=== PATIENT | female | born 1950 | race Caucasian/White ===

== ENCOUNTER 2017-03-02 11:17 | Emergency (ER) | payer OTHER ==
[2017-03-02 11:29] VITALS: BP 150/80; PULSE 69; RESP 16; TEMP 97.7; O2SAT 94
--- NOTE | 2017-03-02 11:59 | EDPHY ---
H & P Time Seen by Provider: 03/02/17 11:28 HPI/ROS: CHIEF COMPLAINT: Dysuria History by patient HISTORY OF PRESENT ILLNESS: 66-year-old woman presents complaining of urinary frequency, urgency and occasional dysuria. She has a history of chronic back pain feels that maybe this is slightly worse than usual. There has been no fever, chills, nausea or vomiting. Patient tried taking azo few weeks ago. She denies any vaginal itching, redness or discharge and says it does not feel like a yeast infection. REVIEW OF SYSTEMS: As in HPI, and all other systems reviewed and are negative Smoking Status: Former smoker Physical Exam: General Appearance: Alert, comfortable, well appearing. Head: normocephalic, atraumatic Eyes: Pupils equal and round, reactive to light, no pallor or injection. Mouth: Mucous membranes moist. Respiratory: Normal, effort, lungs are clear to auscultation. No wheezes, rales or rhonchi. Cardiovascular: Regular rate and rhythm. S1, S2, no murmurs, gallops or rubs appreciated Gastrointestinal: Abdomen is soft and nontender, no masses, bowel sounds normal. Back: No CVA tenderness, no bony tenderness Neurological: Awake, alert and oriented x 3, no pronator drift, normal gait, no pronator drift Skin: Warm and dry, no rashes. Musculoskeletal: No deformities or tenderness. Extremities: full range of motion, no edema, DP2+ bilat Psychiatric: Patient has normal affect, there is no agitation. Constitutional: Initial Vital Signs Temperature (C) 36.5 C 03/02/17 11:22 Heart Rate 69 03/02/17 11:22 Respiratory Rate 16 03/02/17 11:22 Blood Pressure 150/80 H 03/02/17 11:22 O2 Sat (%) 94 03/02/17 11:22 Allergies/Adverse Reactions: No Allergies [NKDA] Allergy (Verified 03/02/17 11:29) Home Medications: Medication Instructions Recorded [place] Carbonate [[place]] 300 mg PO 07/16/11 Amlodipine Besylate 03/02/17 Aspirin 81mg (*) 03/02/17 Hydroxyline 03/02/17 Nitrofurantoin Monohyd/M-Cryst 100 mg PO BID #10 capsule 03/02/17 [Macrobid 100 mg Capsule] Plavix 03/02/17 Rosuvastatin Calcium 03/02/17 Seroquel 03/02/17 VITAMIN D 03/02/17 Valsartan 03/02/17 MDM/Departure - [facility] ED Course/Re-evaluation: 66-year-old woman presents with urinary symptoms without evidence of any systemic toxicity. Urinalysis is equivocal and is not a clean-catch however given she is symptomatic will go ahead and treat with Macrobid. Urine has been sent for culture. I did discuss with the patient that if she does not improve she needs to follow-up. She is in the process of finding a primary care physician. - Depart Disposition: Home, Routine, Self-Care Clinical Impression: Urinary tract infection Qualifiers: Urinary tract infection type: site unspecified Hematuria presence: without hematuria Qualified Code(s): N39.0 - Urinary tract infection, site not specified Condition: Good Instructions: Urinary Traction Infection in Older Adults (ED) Additional Instructions: You were seen by Dr. Raegan East today. Your urinalysis results are not clear cut. Because he had symptoms will go ahead and treat with antibiotics but if you do not improve please return or follow up with her usual physician. Return for any worsening or new concerns. Prescriptions: Nitrofurantoin Monohyd/M-Cryst [Macrobid 100 mg Capsule] 100 mg PO BID #10 capsule Referrals: NONE *PRIMARY CARE P,. [Primary Care Provider] - As per Instructions
== END 2017-03-02 12:01 | disposition home or self-care (01) ==
LOC: CED 11:17
DX: N39.0 Urinary tract infection, site not specified (principal); B96.89 Other specified bacterial agents as the cause of diseases classified elsewhere; Z79.82 Long term (current) use of aspirin; Z87.891 Personal history of nicotine dependence
CPT/HCPCS: 81003-PO; 81015-PO

== ENCOUNTER 2017-03-15 11:56 | Observation (INO) | payer OTHER ==
[2017-03-15 12:33] LABS: % IMMATURE GRANULYOCYTES 0.3 % (0.0-1.1); ABSOLUTE IMMATURE GRANULOCYTES 0.03 10^3/uL (0.00-0.10); ADD DIFF? NO; ADD MORPH? NO; ADD SCAN? NO; ATYPICAL LYMPHOCYTE FLAG 0 (0-99); FRAGMENT RBC FLAG 0 (0-99); HEMATOCRIT 38.2 % (38.0-47.0); HEMOGLOBIN 12.5 g/dL (12.6-16.3); LEFT SHIFT FLG 0 (0-99); LIPEMIA HEMOLYSIS FLAG 80 (0-99); MEAN CELL HEMOGLOBIN 31.6 pg (27.9-34.1); MEAN CELL HEMOGLOBIN CONCENTR. 32.7 g/dL (32.4-36.7); MEAN CELL VOLUME 96.7 fL (81.5-99.8); MEAN PLATELET VOLUME 9.4 fL (8.7-11.7); PLATELET CLUMPS FLAG 0 (0-99); PLATELET COUNT 321 10^3/uL (150-400); RED BLOOD CELL COUNT 3.95 10^6/uL (4.18-5.33); RED CELL DISTRIBUTION WIDTH 14.1 % (11.5-15.2)
--- NOTE | 2017-03-15 12:37 | CPEKG ---
Heart Rate: 69 RR Interval: 870 P-R Interval: 180 QRSD Interval: 104 QT Interval: 408 QTC Interval: 437 P [place]: 65 QRS [place]: 76 T Wave [place]: 25 EKG Severity - NORMAL ECG - EKG Impression: SINUS RHYTHM Electronically Signed By: Kj Mcconnell 15-Mar-2017 15:49:46
[2017-03-15 12:54] LABS: ALBUMIN 4.1 g/dL (3.5-5.0); BILIRUBIN,TOTAL 0.3 mg/dL (0.1-1.4); CALCIUM 10.2 mg/dL (8.5-10.4); CREATININE 1.3 mg/dL (0.6-1.0); POTASSIUM 4.1 mEq/L (3.5-5.2)
[2017-03-15] MEDS ORDERED: NS 1,000 ML IV ONE ×2 (13:04→14:22)
[2017-03-15 14:12] LABS: LEUKOCYTE ESTERASE,URINE NEGATIVE (NEGATIVE); NITRITE,URINE NEGATIVE (NEGATIVE)
[2017-03-15 14:14] LABS: COLOR LT. YELLOW
[2017-03-15 14:18] LABS: LITHIUM 2.3 mEq/L (0.6-1.2)
--- NOTE | 2017-03-15 15:21 | EDPHY ---
H & P Stated Complaint: Pt. states similar when septic? x2yrs ago, disoriented, unsteady Time Seen by Provider: 03/15/17 12:30 HPI/ROS: This patient presents with a 6 day history of gradually increasing difficulty with concentration and difficulty with fine motor skills. She finds that she is unable to use her iPad or her phone well because of some tremor. She also reports generalized weakness. She notes mild urinary urgency associated with her symptoms. She is concerned that she may have an infection because she felt somewhat similar to this when she had pyelonephritis with sepsis in the past. Patient has a history of mood disorder on lithium and she reports that the dose was increased from a total of 100 mg a day to 600 mg a day in January due to some mood instability. Her psychiatric symptoms have improved and she reports currently being compliant with 300 mg of lithium 2 times a day. ROS: No fevers or chills. No other constitutional symptoms except the generalized weakness noted above. HEENT: Mild coryza that she reports chronic. No recent sore throat or ear pain. Neuro: No visual changes. No focal numbness tingling weakness. No headache. Pulmonary: No cough shortness of breath Cardiovascular: No chest pain or heart palpitations. No lower extremity swelling GI: She reports diarrhea for 24 hours only 4 days prior to arrival that resolved. Normal bowel movements since. : Mild urinary urgency. Integumentary: Source: Patient Exam Limitations: No limitations - Medical/Surgical History Hx Asthma: No Hx Chronic Respiratory Disease: No Hx Diabetes: No Hx Cardiac Disease: Yes Hx Renal Disease: No Hx Cirrhosis: No Hx Alcoholism: No Hx HIV/AIDS: No Hx Splenectomy or Spleen Trauma: No Other PMH: cataract surgery, atypical depression,[place]-2016 with 4 stents,Htn, cholesterol - Family History Significant Family History: No pertinent family hx - Social History Smoking Status: Former smoker Alcohol Use: None Drug Use: None - Physical Exam Exam: General Appearance: Alert, no distress. Eyes: Pupils equal and round no pallor or injection. ENT, Mouth: Mucous membranes moist. Respiratory: There are no retractions, lungs are clear to auscultation. Cardiovascular: Regular rate and rhythm. Gastrointestinal: Abdomen is soft and nontender, no masses, bowel sounds normal. Back: No CVA tenderness Neurological: GCS of 15. Cranial nerves 2-12 intact. Patient has slight discoordination on finger to nose bilaterally. She maintains 5/5 strength throughout all extremities. DTRs are 2+ patellar bilaterally. She does have a fine tremor. Skin: Warm and dry, no rashes. Musculoskeletal: Neck is supple nontender. Extremities are symmetrical, full range of motion. Psychiatric: Mood and affect normal. She does not have pressured speech or any psychotic symptoms. DIFFERENTIAL DIAGNOSIS: After history and physical exam differential diagnosis was considered for lithium toxicity, metabolic disarray, subtle stroke, DORMITORY COUNSELOR lesion, UTI Constitutional: Initial Vital Signs Temperature (C) 36.5 C 03/15/17 12:16 Heart Rate 70 03/15/17 12:16 Respiratory Rate 16 03/15/17 12:16 Blood Pressure 105/67 03/15/17 12:16 O2 Sat (%) 96 03/15/17 12:16 O2 Delivery Mode Room Air Allergies/Adverse Reactions: No Allergies [NKDA] Allergy (Verified 03/15/17 12:13) Home Medications: Medication Instructions Recorded Aspirin EC [Aspirin EC 81 mg (*)] 81 mg PO DAILY 03/15/17 Carvedilol [Coreg (*)] 3.125 mg PO BIDMEAL 03/15/17 Cholecalciferol Vit D3 [Vitamin D3 4,000 units PO DAILY@12 03/15/17 2000 units tab (OTC)] Clopidogrel Bisulfate [Plavix (*)] 75 mg PO DAILY 03/15/17 Compounded Pain Cream 1 sharif TP BID 03/15/17 Herbals/Supplements -Info Only 1 ea PO DAILY 03/15/17 QUEtiapine FUMARATE [Seroquel 25 50 mg PO HS 03/15/17 mg (*)] Rosuvastatin Calcium [Crestor 40mg 40 mg PO HS 03/15/17 (*)] Valsartan/Hydrochlorothiazide 1 each PO DAILY 03/15/17 [Diovan Hct 160-25 mg Tablet] amLODIPine BESYLATE [Norvasc 2.5 2.5 mg PO DAILY@12 03/15/17 mg (*)] Medical Decision Making - Diagnostics EKG Interpretation: Performed at 12:35 p.m. 12 lead EKG performed shortly after arrival reveals sinus rhythm at 69 Intervals: Normal throughout [place]: Normal throughout Overall assessment: Normal EKG Please refer to trace master for complete read. 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 No acute findings and otherwise normal per radiologist. Imaging: Discussed imaging studies w/ call box wirer Radiologist ED Course/Re-evaluation: The normal saline bolus times. review of labs revealed elevated lithium level to 2.3 Her BUN creatinine are also elevated compared to a previous levels CBCs unremarkable Urinalysis is borderline for mild UTI with culture sent. Given patient's elevated lithium started the 2nd L normal saline bolus and spoke with the spot man-Dr. Mathew with poison Control who recommends the patient be admitted with a plan of normal saline 200 mL an hour until her lithium level is down to 1.5 or less with the plan to not restart her lithium until all of her neuro symptoms have resolved. I Spoke with Aliya Penn-hospitalist at [facility] who accepts patient for admission I spoke with Dr. Brown the patient's psychiatrist to reports that the intended dose of lithium was actually 300 mg a day-once a day dosing rather than twice daily. I related the patient's current findings and plan not to restart lithium a total of her neuro symptoms resolve Discussion: Patient with chronic lithium toxicity manifesting as subtle confusion and difficulty with fine motor and some ataxia as well warranting admission for further treatment. Given her current creatinine, doubt the patient will need dialysis. Answered all the patient's questions and reviewed her labs in the Plan in some detail. At the time discharge patient is stable and feeling mild improvement in her symptoms. - Data Points Laboratory Results: Laboratory Results 03/15/17 12:25 03/15/17 15:10 Medications Given: Discontinued Medications Aspirin Buffered (Aspirin Ec) 81 mg PO DAILY JUNIOR Stop: 09/12/17 08:59 Last Admin: 03/16/17 09:25 Dose: 81 mg Carvedilol (Coreg) 3.125 mg PO BIDMEAL JUNIOR Stop: 09/12/17 07:59 Last Admin: 03/16/17 13:33 Dose: 3.125 mg Clopidogrel Bisulfate (Plavix) 75 mg PO DAILY JUNIOR Stop: 09/12/17 08:59 Last Admin: 03/16/17 09:26 Dose: 75 mg HCTZ/Valsartan (Diovan Hct 80-12.5 Mg Tab) 2 each PO DAILY JUNIOR Stop: 09/12/17 08:59 Last Admin: 03/16/17 13:33 Dose: 2 each Sodium Chloride (Ns) 1,000 mls @ 0 mls/hr IV EDNOW ONE; Wide Open PRN Reason: Protocol Stop: 03/15/17 13:05 Last Admin: 03/15/17 13:14 Dose: 1,000 mls Sodium Chloride (Ns) 1,000 mls @ 0 mls/hr IV EDNOW ONE; Wide Open PRN Reason: Protocol Stop: 03/15/17 14:23 Last Admin: 03/15/17 14:27 Dose: 1,000 mls Sodium Chloride (Ns) 1,000 mls @ 125 mls/hr IV CONT JUNIOR Stop: 09/11/17 19:14 Last Admin: 03/16/17 03:32 Dose: 1,000 mls Miscellaneous Medication (Compounded Pain Cream) 1 sharif TP BID JUNIOR Stop: 09/11/17 20:59 Last Admin: 03/16/17 09:28 Dose: Not Given Quetiapine Fumarate (Seroquel) 50 mg PO HS JUNIOR Stop: 09/11/17 20:59 Last Admin: 03/15/17 22:15 Dose: 50 mg Rosuvastatin Calcium (Crestor) 40 mg PO HS JUNIOR Stop: 09/11/17 20:59 Last Admin: 03/15/17 22:15 Dose: 40 mg Departure - Departure Disposition: [facility] Acute Clinical Impression: Chronic lithium toxicity Condition: Fair
--- NOTE | 2017-03-15 15:32 | EDPHY ---
H & P Stated Complaint: Pt. states similar when septic? x2yrs ago, disoriented, unsteady Time Seen by Provider: 03/15/17 12:30 HPI/ROS: This patient presents with a six-day history of difficulty concentrating and increasing difficulty with fine motor skill coordination. She reports difficulty using her iPad and her phone due to fine tremor. Patient has a history of mood disorder and is on lithium. Her dose was increased from 100 mg total a day to 600 mg in 300 mg divided doses in January due to increasing mood symptoms with improvement in her psychiatric symptoms. She reports associated generalized weakness over the past few days. She reports 1 day of diarrhea 4 days prior to arrival that has resolved. The patient also noticed mild urinary urgency. She is concerned about potential infection because she had similar symptoms when she was septic from pyelonephritis a year or 2 ago treated [place]. ROS: She reports no fevers. Generalized weakness as above constitutional symptoms otherwise negative HEENT: No URI symptoms except chronic coryza that is unchanged. Pulmonary: No shortness of breath. No coughing. Cardiovascular no heart palpitations. No chest pain GI: No abdominal pain. No vomiting. : Mild urinary urgency. No other urinary symptoms Integumentary: No skin rash Neuro: No focal symptoms other than what is listed in HPI Complete review of symptoms otherwise negative. Source: Patient Exam Limitations: No limitations - Medical/Surgical History Hx Asthma: No Hx Chronic Respiratory Disease: No Hx Diabetes: No Hx Cardiac Disease: Yes Hx Renal Disease: No Hx Cirrhosis: No Hx Alcoholism: No Hx HIV/AIDS: No Hx Splenectomy or Spleen Trauma: No Other PMH: cataract surgery, atypical depression,[place]-2016 with 4 stents,Htn, cholesterol - Family History Significant Family History: No pertinent family hx - Social History Smoking Status: Former smoker Alcohol Use: None Drug Use: None Constitutional: Initial Vital Signs Temperature (C) 36.5 C 03/15/17 12:16 Heart Rate 70 03/15/17 12:16 Respiratory Rate 16 03/15/17 12:16 Blood Pressure 105/67 03/15/17 12:16 O2 Sat (%) 96 03/15/17 12:16 O2 Delivery Mode Room Air Allergies/Adverse Reactions: No Allergies [NKDA] Allergy (Verified 03/15/17 12:13) Home Medications: Medication Instructions Recorded [place] Carbonate [[place]] 300 mg PO 07/16/11 Amlodipine Besylate 03/02/17 Aspirin 81mg (*) 03/02/17 Plavix 03/02/17 Rosuvastatin Calcium 03/02/17 Seroquel 03/02/17 VITAMIN D 03/02/17 Valsartan 03/02/17 Medical Decision Making - Diagnostics EKG Interpretation: 12 lead EKG reveals sinus rhythm at 69 Intervals: Normal throughout [place]: Normal throughout ST segments: Normal throughout Overall assessment normal EKG Imaging Results: Imaging Impressions Head CT 03/15/17 12:30 Impression: 1. No acute intracranial hemorrhage or evidence of acute cortical ischemia. 2. Minimal posterior frontal subcortical white matter disease and old left occipital encephalomalacia. Findings discussed with Emergency Department physician, Dr. Kj Mcconnell on March 15, 2017 at 1250 hours. Imaging: Discussed imaging studies w/ teacher physically impaired Radiologist ED Course/Re-evaluation: UA reveals a few leukocytes and mild bacteria sent for culture Basic metabolic panel is notable for elevated BUN and creatinine compared to prior numbers. [place] levels elevated to 2.3 with a top normal of 1.2 IV normal saline bolus, monitor, after reviewing elevated lithium level, repeat 1 L normal saline bolus and redrew the basic metabolic panel in lithium I spoke with Dr. Mathew-toxicology follow from [facility] who recommends that the patient have 200 mL an hour normal saline IV until her lithium level his reached 1.5 or lower. She can then be started on a normal diet. The plan would be to hold off on restarting lithium until all of her neuro symptoms have completely resolved. I discuss this plan with the patient is comfortable with the admission plan. Discussion: Patient with chronic lithium toxicity could causing her ataxia, fine motor difficulties and difficulty concentrating. It seems a bit unusual to have toxicity at this dose but it may be that the valsartan combined with the lithium contributed. We ruled out significant infection and see no evidence of acute FAMILY MEDICINE PHYSICIAN pathology on her CT scan. I spoke with Dr. Johanny Penn, hospitalist at [facility] accepts patient for admission understands 8th grade mathematics teacher recommendations. - Data Points Laboratory Results: Laboratory Results 03/15/17 12:25 03/15/17 03/15/17 03/15/17 15:10 14:03 12:45 WBC RBC Hgb Hct MCV MCH MCHC RDW Plt Count MPV Neut % (Auto) Lymph % (Auto) [place] % (Auto) Eos % (Auto) Baso % (Auto) Nucleat RBC Rel Count Absolute Neuts (auto) Absolute Lymphs (auto) Absolute Monos (auto) Absolute Eos (auto) Absolute Basos (auto) Absolute Nucleated RBC Immature Gran % Immature Gran # Sodium Pending Potassium Pending Chloride Pending Carbon Dioxide Pending Anion Gap Pending BUN Pending Creatinine Pending Estimated GFR Pending Glucose Pending Calcium Pending Total Bilirubin AST ALT Alkaline Phosphatase Troponin I < 0.012 ng/mL ng/mL (0.000-0.034) Total Protein Albumin Urine Color LT. YELLOW Urine Appearance CLEAR Urine pH 6.0 (5.0-7.5) Ur Specific [place] <= 1.005 (1.002-1.030) Urine Protein NEGATIVE (NEGATIVE) Urine Ketones NEGATIVE (NEGATIVE) Urine Blood NEGATIVE (NEGATIVE) Urine Nitrate NEGATIVE (NEGATIVE) Urine Bilirubin NEGATIVE (NEGATIVE) Urine Urobilinogen 0.2 EU EU (0.2-1.0) Ur Leukocyte Esterase NEGATIVE (NEGATIVE) Urine Glucose NEGATIVE (NEGATIVE) [place] Pending 03/15/17 03/15/17 03/15/17 12:25 12:25 12:25 WBC 10.68 10^3/uL H 10^3/uL (3.80-9.50) RBC 3.95 10^6/uL L 10^6/uL (4.18-5.33) Hgb 12.5 g/dL L g/dL (12.6-16.3) Hct 38.2 % % (38.0-47.0) MCV 96.7 fL fL (81.5-99.8) MCH 31.6 pg pg (27.9-34.1) MCHC 32.7 g/dL g/dL (32.4-36.7) RDW 14.1 % % (11.5-15.2) Plt Count 321 10^3/uL 10^3/uL (150-400) MPV 9.4 fL fL (8.7-11.7) Neut % (Auto) 79.3 % H % (39.3-74.2) Lymph % (Auto) 12.0 % L % (15.0-45.0) [place] % (Auto) 6.5 % % (4.5-13.0) Eos % (Auto) 1.4 % % (0.6-7.6) Baso % (Auto) 0.5 % % (0.3-1.7) Nucleat RBC Rel Count 0.0 % % (0.0-0.2) Absolute Neuts (auto) 8.48 10^3/uL H 10^3/uL (1.70-6.50) Absolute Lymphs (auto) 1.28 10^3/uL 10^3/uL (1.00-3.00) Absolute Monos (auto) 0.69 10^3/uL 10^3/uL (0.30-0.80) Absolute Eos (auto) 0.15 10^3/uL 10^3/uL (0.03-0.40) Absolute Basos (auto) 0.05 10^3/uL 10^3/uL (0.02-0.10) Absolute Nucleated RBC 0.00 10^3/uL 10^3/uL (0-0.01) Immature Gran % 0.3 % % (0.0-1.1) Immature Gran # 0.03 10^3/uL 10^3/uL (0.00-0.10) Sodium 141 mEq/L mEq/L (134-144) Potassium 4.1 mEq/L mEq/L (3.5-5.2) Chloride 106 mEq/L mEq/L (97-110) Carbon Dioxide 21 mEq/l L mEq/l (22-31) Anion Gap 14 mEq/L mEq/L (8-16) BUN 47 mg/dL H mg/dL (7-23) Creatinine 1.3 mg/dL H mg/dL (0.6-1.0) Estimated GFR 41 Glucose 108 mg/dL H mg/dL (70-100) Calcium 10.2 mg/dL mg/dL (8.5-10.4) Total Bilirubin 0.3 mg/dL mg/dL (0.1-1.4) AST 22 IU/L IU/L (14-46) ALT 44 IU/L IU/L (9-52) Alkaline Phosphatase 118 IU/L IU/L (38-126) Troponin I Total Protein 7.0 g/dL g/dL (6.3-8.2) Albumin 4.1 g/dL g/dL (3.5-5.0) Urine Color Urine Appearance Urine pH Ur Specific [place] Urine Protein Urine Ketones Urine Blood Urine Nitrate Urine Bilirubin Urine Urobilinogen Ur Leukocyte Esterase Urine Glucose [place] 2.3 mEq/L H* mEq/L (0.6-1.2) Medications Given: Discontinued Medications Sodium Chloride (Ns) 1,000 mls @ 0 mls/hr IV EDNOW ONE; Wide Open PRN Reason: Protocol Stop: 03/15/17 13:05 Last Admin: 03/15/17 13:14 Dose: 1,000 mls Sodium Chloride (Ns) 1,000 mls @ 0 mls/hr IV EDNOW ONE; Wide Open PRN Reason: Protocol Stop: 03/15/17 14:23 Last Admin: 03/15/17 14:27 Dose: 1,000 mls Departure - Departure Disposition: [facility] Inpatient Acute Clinical Impression: Chronic lithium toxicity Condition: Fair Referrals: Unknown,Unknown [Primary Care Provider] - As per Instructions
[2017-03-15] MEDS ORDERED: NS 1,000 ML IV SCH (15:40)
[2017-03-15 15:46] LABS: ANION GAP 11 mEq/L (8-16); CALCIUM 8.7 mg/dL (8.5-10.4); CARBON DIOXIDE 20 mEq/l (22-31); CHLORIDE 110 mEq/L (97-110); GLOMERULAR FILTRATION RATE 55; GLUCOSE 106 mg/dL (70-100); POTASSIUM 3.9 mEq/L (3.5-5.2); SODIUM 141 mEq/L (134-144)
[2017-03-15] MEDS ORDERED: ONDANSETRON DISINTEGRATING 4 MG TAB PO PRN (18:34)
[2017-03-15] MEDS ORDERED: ONDANSETRON 4 MG/2 ML VIAL IVP PRN (18:34)
[2017-03-15] MEDS ORDERED: ACETAMINOPHEN 325 MG TAB PO PRN (18:34)
[2017-03-15 19:54] LABS: ANION GAP 10 mEq/L (8-16); CALCIUM 9.5 mg/dL (8.5-10.4); CARBON DIOXIDE 21 mEq/l (22-31); CHLORIDE 111 mEq/L (97-110); CREATININE 1.1 mg/dL (0.6-1.0); GLOMERULAR FILTRATION RATE 50; GLUCOSE 94 mg/dL (70-100); LITHIUM 1.8 mEq/L (0.6-1.2); POTASSIUM 4.1 mEq/L (3.5-5.2); SALICYLATE < 1.0 mg/dL (2.0-20.0); SODIUM 142 mEq/L (134-144)
--- NOTE | 2017-03-15 20:01 | GHP ---
[f rep st] HISTORY AND PHYSICAL DATE OF ADMISSION: 03/15/2017 CHIEF COMPLAINT: Shaky and disoriented. HISTORY OF PRESENT ILLNESS: This patient is a 66-year-old female with history of bipolar disorder, who presented to the emergency department complaining of feeling disoriented and unsteady. She has a history of bipolar disorder and started on lithium at the age of 59. Her mood had been stabilized on 100 mg daily, but she states that the season causes more mood swings, and approximately 3 weeks prior to admission, her lithium dose was increased to 300 mg daily. She states her psychiatric symptoms improved. However, she began feeling a tremor in her upper extremities, making it difficult to use her iPad or iPhone. She also complains of difficulty concentrating, and some mild confusion. She feels a bit unsteady with ambulation. She denies fevers or chills. She denies polydipsia or polyuria. In the emergency department, a head CT was negative for stroke or hemorrhage. [place] level was 2.5. She was given 2 L of normal saline, and was admitted to the hospital for further management. PAST MEDICAL AND SURGICAL HISTORY: 1. Bipolar disorder. 2. Coronary artery disease, with a history of [place] in 2016, requiring 4 stents. 3. Hypertension. 4. Hyperlipidemia. 5. Cataract surgery. SOCIAL HISTORY: The patient lives independently with her , who is at the bedside, along with her daughter. She denies tobacco or alcohol use. She denies any other ingestions or substance use. FAMILY HISTORY: Reviewed and noncontributory. MEDICATIONS: Please see [facility] for completed outpatient medication list. ALLERGIES: She has no known drug allergies. REVIEW OF SYSTEMS: A 10-point review of systems was performed, and is negative except as per HPI. OBJECTIVE: VITAL SIGNS: Temperature is 37.1, blood pressure 132/75, heart rate 71, respiratory rate 20, she is 96% on room air. GENERAL: Patient is awake, alert, oriented, in no acute distress. HEENT: Head is atraumatic, normocephalic. Pupils equal, round, reactive to light. Extraocular movements intact. Oropharynx is clear. Mucous membranes are moist. NECK: Supple. There is no JVD. HEART: Regular rate without murmur. LUNGS: Coarse bilaterally. ABDOMEN: Soft, nondistended, nontender. Normoactive bowel sounds. EXTREMITIES: Without cyanosis, clubbing, or edema. NEUROLOGIC: She has a fine tremor of her bilateral distal upper extremities. There is no facial droop. Pronator drift is negative. She moves all 4 extremities equally with no focal weakness. No other focal neurologic deficits. LABORATORY DATA: CBC reveals a white blood cell count of 10.7. Complete metabolic panel is remarkable for a CO2 of 20, BUN 42, creatinine 1.0, glucose 106. Urinalysis was negative. [place] level 2.3 on arrival. Repeat is 2.0. ASSESSMENT AND PLAN: This patient is a 66-year-old female with a history of coronary artery disease and bipolar disorder, who is admitted to the hospital with lithium toxicity. 1. [place] toxicity. Her lithium level is already trending down, from 2.3 to 2.0, with normal saline. We will continue normal saline at 200 cc an hour, and check q.4 hour lithium levels as well as sodium levels to ensure she is not developing hypernatremia. Her lithium will obviously be held. 2. Bipolar disorder. As above, her lithium is held. She will need close followup with her psychiatrist. Her mood is currently stable. Will continue Seroquel. 3. Coronary artery disease. She is chest pain-free, and is currently stable from a cardiovascular standpoint. We will continue her outpatient medications, including aspirin, Plavix, beta [place], and statin therapy. 4. Hypertension. Blood pressure is adequately controlled. Will continue her outpatient medications. 5. Deep venous thrombosis prophylaxis. Will place sequential compression devices. I do not anticipate a prolonged hospitalization, though if she requires ongoing hospitalization, would consider Lovenox. 6. Code status: Patient is full code. 7. Disposition. Patient is admitted to observation status. Her lithium level is already trending down; if this is below 1.5 by tomorrow, she could be a candidate for discharge with close outpatient followup. /[id number]/MODL MTDD
[2017-03-15] MEDS ORDERED: QUEtiapine FUMARATE 50 MG TAB PO SCH (21:00)
[2017-03-15] MEDS ORDERED: ROSUVASTATIN CALCIUM 40 MG TAB PO SCH (21:00)
[2017-03-15] MEDS: [UNRECOGNIZED DRUG - OTHER] TP SCH (22:15)
[2017-03-15] MEDS: NS 1,000 ML IV SCH (22:37)
[2017-03-15 23:20] LABS: ANION GAP 9 mEq/L (8-16); CALCIUM 8.8 mg/dL (8.5-10.4); CARBON DIOXIDE 18 mEq/l (22-31); CHLORIDE 110 mEq/L (97-110); CREATININE 1.1 mg/dL (0.6-1.0); GLOMERULAR FILTRATION RATE 50; GLUCOSE 94 mg/dL (70-100); LITHIUM 1.5 mEq/L (0.6-1.2); SODIUM 137 mEq/L (134-144)
[2017-03-16 02:53] VITALS: O2SAT 93
[2017-03-16] MEDS: NS 1,000 ML IV SCH (03:32)
[2017-03-16 05:47] LABS: ANION GAP 10 mEq/L (8-16); CARBON DIOXIDE 19 mEq/l (22-31); CHLORIDE 115 mEq/L (97-110); GLOMERULAR FILTRATION RATE 55; GLUCOSE 94 mg/dL (70-100); LITHIUM 1.4 mEq/L (0.6-1.2); POTASSIUM 4.1 mEq/L (3.5-5.2); SODIUM 144 mEq/L (134-144)
[2017-03-16 07:18] VITALS: RESP 18
[2017-03-16] MEDS ORDERED: CARVEDILOL 3.125 MG TAB PO SCH (08:00)
[2017-03-16] MEDS ORDERED: VALSARTAN/HCTZ 80-12.5MG TAB PO SCH (09:00)
[2017-03-16] MEDS ORDERED: ASPIRIN EC 81 MG TAB PO SCH (09:00)
[2017-03-16] MEDS ORDERED: CLOPIDOGREL BISULFATE 75 MG TAB PO SCH (09:00)
[2017-03-16] MEDS: [UNRECOGNIZED DRUG - OTHER] TP SCH (09:28)
[2017-03-16 11:21] VITALS: BP 127/66; TEMP 98.5
--- NOTE | 2017-03-16 11:28 | ASMTCASEMG ---
Living Arrangements What is your living Answers: With Spouse arrangement? Who do you live with? Type Of Residence What kind of residence do Answers: House you live in? Discharge Plan Comments Coordination Status Comments Notes: Pt is a 66 y/o female admitted after feeling disoriented and tremulous. Pt will have labs done at the hospital. Anticipates that pt will d/c independent when medically ready to d/c. CM available for d/c needs. Date Signed: 03/16/2017 11:28 AM Electronically Signed By:MIRTA [place]
[2017-03-16 12:00] LABS: ANION GAP 10 mEq/L (8-16); CALCIUM 9.5 mg/dL (8.5-10.4); CARBON DIOXIDE 18 mEq/l (22-31); CHLORIDE 115 mEq/L (97-110); GLOMERULAR FILTRATION RATE 55; GLUCOSE 104 mg/dL (70-100); LITHIUM 1.1 mEq/L (0.6-1.2); POTASSIUM 4.3 mEq/L (3.5-5.2); SODIUM 143 mEq/L (134-144)
[2017-03-16 13:34] VITALS: PULSE 70
--- NOTE | 2017-03-16 15:12 | ASDISCHSUM ---
Discharge Information Plan Status:Home with No Needs Medically Cleared to Leave:03/15/2017 Discharge Date:03/16/2017 02:08 PM D/C Disposition: ADT D/C Disposition:Home, Routine, Self-Care Projected Discharge Date:03/16/2017 12:00 AM Transportation at D/C: Discharge Delay Reason: Follow-Up Date:03/16/2017 12:00 AM Discharge Slot: Final Diagnosis: Placement Information Patient Contact Information Contact Name:QUIQUE Relationship: Address:[address] City:[place] Alternate Phone: State/Zip Code:[place] [address] Email: Financial Information Financial Class:Medicare Advantage Plans Primary Plan Desc:[facility] [employer] PLANS Primary Plan Number:[id number] Secondary Plan Desc: Secondary Plan Number: Assessment Information [facility] Initial CM Assessment Living Arrangements What is your living Answers: With Spouse arrangement? Who do you live with? Type Of Residence What kind of residence do Answers: House you live in? Discharge Plan Comments Coordination Status Comments Notes: Pt is a 66 y/o female admitted after feeling disoriented and tremulous. Pt will have labs done at the hospital. Anticipates that pt will d/c independent when medically ready to d/c. CM available for d/c needs. Date Signed: 03/16/2017 11:28 AM Electronically Signed By:MIRTA [place] Intervention Information Intervention Type:*GAGE-Signed Date of Service:03/16/2017 11:30 AM Patient Type:Observation Staff Member:Wanda Barakat Hours: Discipline: Severity: Comment:
--- NOTE | 2017-03-17 02:44 | GDS ---
[f rep st] DISCHARGE SUMMARY DISCHARGE DIAGNOSES: Include: 1. Acute lithium toxicity. 2. Bipolar disorder. 3. Coronary artery disease. 4. Hypertension. 5. Hyperlipidemia. HISTORY OF PRESENT ILLNESS: A 66-year-old female with a chronic history of bipolar disorder recently restarted on lithium, who presents with complaints of shakiness and disorientation. For details of the patient's initial presentation, please see the history and physical dated 03/15/2017. CONSULTATIVE SERVICES: None. PROCEDURES: None. HOSPITAL COURSE: By issue: 1. [place] toxicity. Patient presented with a lithium level of 2. She was acutely disoriented with tremors. Was admitted, initiated on aggressive fluid resuscitation, had her lithium obviously held and her electrolytes monitored closely. The patient's lithium levels decreased from 2.3 at initial p resentation of 1.1. At the time of disposition after extensive investigation by the inpatient pharma cist, it was ascertained the patient believes she was taking 200 mg of lithium, but instead was takin g 2 300 mg extended release tablets in the evening equaling 600 mg of lithium each evening. We have been in communication with her outpatient psychiatric provider Dr. Norris. The patient is being discha rged off lithium ongoing until evaluated by Dr. Norris in the outpatient setting. The patient's mental status is back to baseline, tremors have resolved, and her electrolytes have remained normal. She w ill continue on her normal psychiatric medications minus lithium until seen by Dr. Norris in the outpat ient setting. 2. Coronary artery disease. No changes were made to this patient's regimen. The patient did not tinsley ve chest pain or changes on EKG. 3. Hypertension. Patient is on Diovan, which can potentiate lithium levels. Psychiatric provider i s aware of this. We will continue this medication at disposition knowing that if lithium is re-initi ated they may need to address the usage of Diovan for hypertension. MEDICATIONS: At the time of disposition, please reference med rec printed on 03/16/2017. Of note, t he patient's lithium is being held at discharge. PENDING STUDIES: At the time of this dictation are none. FOLLOWUP APPOINTMENTS: Include: 1. With Dr. Norris in the outpatient setting next week for her first post discharge psychiatric follow up. 2. With her primary care provider for ongoing management of her hypertension and coronary artery dis ease. I spent greater than 30 minutes in the planning and coordination of this discharge. /[id number]/MODL
== END 2017-03-16 14:08 | disposition home or self-care (01) ==
LOC: CED 11:56 → CEDHOLD 15:39 → F3E 17:40
PROVIDERS: ADMIT Hospitalist; ATTEND Hospitalist
DX: T56.891A Toxic effect of other metals, accidental (unintentional), initial encounter (principal); F31.9 Bipolar disorder, unspecified; I25.10 Atherosclerotic heart disease of native coronary artery without angina pectoris; I10 Essential (primary) hypertension; E78.5 Hyperlipidemia, unspecified; Z87.891 Personal history of nicotine dependence
CPT/HCPCS: 70450; 93005; G0378; 80048-PO; 80053-PO; 81003-PO; 84484-PO; 85025-PO; G0480

== ENCOUNTER 2018-03-10 09:06 | Observation (INO) | payer OTHER ==
[2018-03-10] MEDS ORDERED: NS 1,000 ML IV ONE (09:10)
[2018-03-10] MEDS ORDERED: ASPIRIN EC 325 MG TAB PO ONE ×2 (09:10→09:47)
[2018-03-10] MEDS ORDERED: DIAZEPAM 5 MG TAB PO ONE (09:10)
[2018-03-10] MEDS ORDERED: FAMOTIDINE 20 MG TAB PO ONE (09:10)
[2018-03-10] MEDS ORDERED: diphenhydrAMINE 25 MG CAP PO ONE ×2 (09:10→09:47)
--- NOTE | 2018-03-10 09:36 | PDPROPOC ---
Sedation Plan of Care Sedation Plan of Care: vital signs stable, mental status noted, patient educated of risks, benefits, alternatives, patient can tolerate sedation ASA Classification: ASA 3 Planned drugs: fentanyl, midazolam Mallampati Score: Class 2 Mallampati Reference Image: Patient passed 3-3-2 rule?: No
--- NOTE | 2018-03-10 09:37 | PDHPUP ---
History & Physical Update H&P update statement: This history and physical update is based on an assessment of the patient which was completed after admission or registration (within 24 hours), but prior to the surgery/procedure. H&P update: H&P reviewed & patient examined, no change in patient's condition since H&P completed
[2018-03-10] MEDS ORDERED: FAMOTIDINE 20 MG TAB ONE (09:47)
[2018-03-10 10:01] LABS: PLATELET COUNT 286 10^3/uL (150-400)
[2018-03-10 10:10] LABS: INR 1.02 (0.83-1.16); PROTIME(PATIENT) 13.6 SEC (12.0-15.0)
[2018-03-10] MEDS ORDERED: VERAPAMIL 5 MG/2 ML VIAL ONE (10:59)
[2018-03-10] MEDS ORDERED: HEPARIN 10,000 UNIT/10 ML MDV (1,000 UNIT/ML) ONE (10:59)
[2018-03-10] MEDS ORDERED: fentaNYL 100 MCG/2 ML INJ ONE ×2 (10:59→13:18)
[2018-03-10] MEDS ORDERED: MIDAZOLAM 2 MG/2 ML VIAL ONE ×2 (10:59→13:18)
[2018-03-10] MEDS ORDERED: LIDOCAINE 1% 300 MG/30 ML SDV ONE (10:59)
[2018-03-10] MEDS ORDERED: IOPAMIDOL (ISOVUE-370) 150 ML BTL IV ONE (10:59)
[2018-03-10] MEDS ORDERED: DOPamine/DEXTROSE 400 MG/250 ML BAG IV ONE (12:39)
[2018-03-10] MEDS ORDERED: CLOPIDOGREL BISULFATE 75 MG TAB PO ONE (13:52)
[2018-03-10] MEDS ORDERED: OXYCODONE/APAP 5/325 TAB PO PRN (13:52)
[2018-03-10] MEDS ORDERED: LORazepam 2 MG/ML INJ IVP PRN (13:52)
[2018-03-10] MEDS ORDERED: ATROPINE SULFATE 1 MG/10 ML SYR IVP PRN (13:52)
[2018-03-10] MEDS ORDERED: CLOPIDOGREL BISULFATE 75 MG TAB ONE (13:52)
[2018-03-10] MEDS ORDERED: ONDANSETRON 4 MG/2 ML VIAL IVP PRN (13:52)
[2018-03-10] MEDS ORDERED: TEMAZEPAM 15 MG CAP PO PRN (13:52)
[2018-03-10] MEDS ORDERED: HYDROCODONE/APAP 5/325 TAB PO PRN (13:52)
[2018-03-10] MEDS ORDERED: NITROGLYCERIN 0.4 MG BTL SL PRN (13:52)
[2018-03-10] MEDS ORDERED: NS 1,000 ML IV SCH (14:00)
--- NOTE | 2018-03-10 14:45 | CPIP ---
DATE OF PROCEDURE: 03/10/2018 PROCEDURE PERFORMED: 1. Selective coronary geography. 2. Coronary catheterization. 3. Percutaneous transluminal coronary angioplasty and stent placement of the right coronary artery w ith the use of a Synergy 2.75 x 24 drug-eluting stent, post-dilated with 3.0 x 12 Emerge NC noncompli ant balloon. COMPLICATIONS: None. 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 She presented to Dr. Spence with comp laints of severe indigestion, which is her known to be her anginal equivalent and occurred prior to p rior myocardial infarction in the past. She had this discomfort at rest consistent with CCS class IV symptoms of angina. For that reason, Dr. Spence recommended a cardiac catheterization from the wris t approach given her Leriche's syndrome. PROCEDURE IN DETAIL: After informed consent was obtained, n.p.o. status was confirmed the region of the left and right wrist were cleaned, prepped, and draped in sterile fashion. Attempts to gain acce ss to the right wrist were difficult. I was unable to get a wire to thread in her right radial arter y. Pressure was held for 10 minutes and we moved to the left side. Ultimately, we gained access to the left radial artery and had difficulty advancing the J-wire in the subclavian artery, likely becau se of partial obstruction at its takeoff from the aorta. Ultimately, a Glidewire was used to cross t he lesion in the ostial left circumflex vessel and angiography was then performed. The right coronary artery is dominant and 2.5 mm size giving the vessel has been previously stented, and in its mid segment, there is evidence of severe in-stent restenosis with KAZ-3 flow to the dista l vessel. There is evidence of a 99% obstruction of the mid right coronary artery at the level of th e RV branch takeoff. The left main coronary lumen is approximately 6 mm in size and bifurcates into an LAD and circumflex system. The LAD is 3 mm in size and gives rise to important diagonal branch be fore coursing the anterior apex without flow-limiting obstruction. The left circumflex arises in its usual location, is 2.75 mm in size, and has been previously stented. There are in-segment restenosi s just proximal to the first and in between the 2 non-overlapping stents in the circumflex proper wit h 20% to 30% stenosis of the circumflex proximal to the first stent and in the intervening segment be tween the 2 previously placed stents of the circumflex obtuse marginal system. Again, there is KAZ- 3 flow and no flow-limiting obstruction is identified on the left side. We turned our attention to the lesion in the right coronary artery. A 6-Sinhala guiding catheter was used for guide catheter support. A 0.014 Intuition wire was advanced across the lesion in question a s was primarily ballooned with a 2.5 x 15 balloon. There was residual restenosis in an overlapping s egment distal to the RCA, and therefore, we performed stent implantation with a 2.75 x 24 Synergy kim g-eluting stent at a maximum pressure of 16 atmospheres. There remained a napkin-ring type stenosis of the RCA in the distal segment of the stent deployment. This was post-dilated with 3.0 x 15 NC Eugenia rge balloon at a maximum pressure of 20 atmospheres with 5% residual stenosis status post PTCA and st ent placement. Patient tolerated the procedure well and returned to the post cath recovery unit in good stable condi tion, where a stat postoperative EKG will be obtained. IMPRESSION: Successful balloon angioplasty and stent placement from a left radial approach. The pat ient did receive a drug-eluting stent and should remain on aspirin and Plavix in combination for at l east 1 year following stent implantation. The patient should be able to be discharged in the morning unless complications ensue. Copy requested to: Cally Valdivia MD /[id number]/[facility] [place]
[2018-03-10] MEDS ORDERED: ACETAMINOPHEN 325 MG TAB PO PRN (16:32)
--- NOTE | 2018-03-10 16:34 | CPEKG ---
Test Reason : OPEN Blood Pressure : / mmHG Vent. Rate : 075 BPM Atrial Rate : 075 BPM P-R Int : 154 ms QRS Dur : 101 ms QT Int : 385 ms P-R-T Axes : 069 070 055 degrees QTc Int : 430 ms Sinus rhythm Confirmed by Liborio aSnford ([id number]) on 03/10/2018 4:34:16 PM Referred By: Confirmed By:Liborio Sanford
--- NOTE | 2018-03-10 16:37 | CPEKG ---
Test Reason : OPEN Blood Pressure : / mmHG Vent. Rate : 063 BPM Atrial Rate : 063 BPM P-R Int : 198 ms QRS Dur : 105 ms QT Int : 451 ms P-R-T Axes : 065 071 067 degrees QTc Int : 462 ms Sinus rhythm Confirmed by Liborio Sanford ([id number]) on 03/10/2018 4:37:08 PM Referred By: Confirmed By:Liborio Sanford
[2018-03-10] MEDS ORDERED: CARVEDILOL 3.125 MG TAB PO SCH (18:00)
[2018-03-10] MEDS ORDERED: GABAPENTIN 400 MG CAP PO SCH (21:00)
[2018-03-10] MEDS ORDERED: QUEtiapine FUMARATE 25 MG TAB PO SCH (21:00)
[2018-03-10] MEDS ORDERED: SEROQUEL 25 MG PO SCH (21:00)
[2018-03-10] MEDS ORDERED: ROSUVASTATIN CALCIUM 40 MG TAB PO SCH (21:00)
[2018-03-10] MEDS ORDERED: LOSARTAN/HCTZ 50/12.5 1 TAB PO SCH (21:00)
[2018-03-10] MEDS: CARVEDILOL 3.125 MG TAB PO SCH (21:55)
[2018-03-11 05:30] LABS: PLATELET COUNT 244 10^3/uL (150-400)
[2018-03-11 08:12] VITALS: BP 113/68
[2018-03-11] MEDS: CARVEDILOL 3.125 MG TAB PO SCH (08:24)
[2018-03-11] MEDS ORDERED: ASPIRIN EC 325 MG TAB PO SCH (09:00)
[2018-03-11] MEDS ORDERED: CLOPIDOGREL BISULFATE 75 MG TAB PO SCH (09:00)
[2018-03-11] MEDS ORDERED: CHOLECALCIFEROL VIT D3 2,000 UNITS TAB/CAP PO SCH (09:00)
[2018-03-11] MEDS ORDERED: TRIAMTERENE/HCTZ 37.5/25 1 EACH TAB PO SCH (09:00)
--- NOTE | 2018-03-11 09:00 | CPEKG ---
Test Reason : OPEN Blood Pressure : / mmHG Vent. Rate : 070 BPM Atrial Rate : 070 BPM P-R Int : 161 ms QRS Dur : 105 ms QT Int : 407 ms P-R-T Axes : 077 083 051 degrees QTc Int : 440 ms Sinus rhythm Borderline right axis deviation Confirmed by Liborio Sanford ([id number]) on 03/11/2018 9:00:02 AM Referred By: Confirmed By:Liborio Sanford
--- NOTE | 2018-03-11 20:40 | GDS ---
The patient has severe indigestion, which was a predictor of myocardial infarction in the past and th e patient did not have a stress test. Required a radial approach because of a known Leriche's syndro me with occlusion of her distal abdominal aorta. ADMIT DIAGNOSES: 1. Unstable angina pectoris. 2. Abnormal EKG. 3. Anemia. DISCHARGE DIAGNOSES: 1. Unstable angina pectoris, status post PTCA and stent placement of the right coronary artery for i n-stent restenosis and possible thrombosis. 2. Anemia. HISTORY OF PRESENT ILLNESS: For detailed History of Present Illness, please see the recently dictate d H and P as per Dr. Spence from his office notes at [facility]. Briefly, the patient has a histo ry of prior DE and right coronary artery and left circumflex stents under the care of Dr. Restrepo at [facility]. She has a known Leriche's syndrome and had severe indigestion as her predictor of my ocardial infarction in the past. She had a similar spell in the days leading up to her evaluation by Dr. Spence and felt that her activity should be restricted and she should proceed with cardiac tracee terization to rule out flow-limiting obstruction of her coronary circulation. HOSPITAL COURSE: The patient was admitted, underwent angiography from a left radial approach which w as difficult because of significant and relatively profound hypotension. It required multiple sticks of radial artery to get the wire to thread and the sheath to track the wire. In any case, we were a ble to perform angiography documenting a high-grade stenosis within the multiple overlapping stents o f the right coronary artery. This was successfully ballooned and stented with a Synergy drug-eluting stent with excellent angiograph results and a 5% residual stenosis. [facility] and on the morning of her discharge from the hospital, is medically stable and ready for discharg e to home. Her discharge medications are to include aspirin 325 mg for the first month, followed by 81 mg daily. She is also to take Plavix 75 mg to complete at least 1 year post synergy drug-eluting stent implantation. Given the severity of the patient's atherosclerosis as well as the severity of h er peripheral vascular disease and dual bed vascular disease, I think she may benefit from aspirin an d Plavix lifelong. We are holding her triamterene hydrochlorothiazide and would like to continue her Hyzaar, which is losartan 100 and hydrochlorothiazide 25. She is also on Coreg 3.125 p.o. b.i.d. S he is also on Seroquel 25 mg daily and rosuvastatin 40 mg daily. Her activities to be limited by rad ial wrist precautions post catheterization. She is to return promptly to the emergency department sh ould she experience chest pain, pressure, tightness, shortness of breath, or other clinical symptoms of concern. She does have a followup appointment scheduled with Dr. Spence in the near future. The patient was noted to be anemic which was significant and with hematocrit of less than 30. Post tracee terization, it was hovering around that area before her heart catheterization. It may be that anemia was also playing some role in her chest pain equivalent syndrome. However, I suspect there was a se verity of the blockage within the right coronary artery. I do think that the anemia needs to be trac ked and the cause of it identified. She has had a recent colonoscopy which was negative. I have ask ed her to follow up with her primary care physician in that regard. She knows to notify me promptly for bleeding and report to the emergency department for that issue. Copy requested to: Cally Valdivia /[id number]/[facility]
== END 2018-03-11 09:32 | disposition home or self-care (01) ==
LOC: FCATH 09:06 → F2W 13:52
PROVIDERS: ADMIT Internal Medicine Cardiovascular Disease; ATTEND Internal Medicine Cardiovascular Disease
DX: I25.110 Atherosclerotic heart disease of native coronary artery with unstable angina pectoris (principal); T82.855A Stenosis of coronary artery stent, initial encounter; R94.31 Abnormal electrocardiogram [ECG] [EKG]; D64.9 Anemia, unspecified; I95.9 Hypotension, unspecified; I70.0 Atherosclerosis of aorta; I25.2 Old myocardial infarction; I73.9 Peripheral vascular disease, unspecified; I10 Essential (primary) hypertension; E78.5 Hyperlipidemia, unspecified; Z79.82 Long term (current) use of aspirin; Z79.02 Long term (current) use of antithrombotics/antiplatelets; Z87.891 Personal history of nicotine dependence; Z82.49 Family history of ischemic heart disease and other diseases of the circulatory system; Z82.3 Family history of stroke; Z95.5 Presence of coronary angioplasty implant and graft
CPT/HCPCS: 93005; 93458; C1725; C1769; C1874; C1887; C9600; G0378; J1265; J1644; J2250; J3010; Q9967